=== PATIENT | female | born 1975 | race Caucasian/White ===

== ENCOUNTER 2016-12-01 19:38 | Emergency (ER) | payer MEDICARE, MEDICAID ==
[2016-12-01] MEDS ORDERED: Triple Antibiotic Oint 1 GM Packet ONE (21:34)
[2016-12-01] MEDS ORDERED: HYDROcodone/Acetaminophen 10/325 mg Tablet ONE (21:34)
[2016-12-01] MEDS ORDERED: Naproxen 500 MG TAB ONE (21:34)
[2016-12-01] MEDS ORDERED: Cephalexin 500 MG CAP ONE (21:34)
[2016-12-01] MEDS ORDERED: Adacel (T-DAP) 0.5 ML VIAL ONE (21:34)
== END 2016-12-01 21:52 | disposition home or self-care (01) ==
LOC: MADERS 19:38
DX: T23.262A Burn of second degree of back of left hand, initial encounter (principal); Z87.442 Personal history of urinary calculi; X19.XXXA Contact with other heat and hot substances, initial encounter
CPT/HCPCS: 90471; 90715

== ENCOUNTER 2017-07-16 21:16 | Emergency (ER) | payer MEDICARE, MEDICAID ==
--- NOTE | 2017-07-16 22:02 | RAD ---
TWO VIEWS RIGHT TIBIA AND FIBULA 07/16/17 HISTORY: Injury after trauma. FINDINGS: There is a slightly but nondisplaced transverse fracture involving the most distal aspect of the right lateral malleolus. There is overlying subcutaneous soft tissue swelling noted. No addit ional fracture is seen involving the right tibia or fibula. There is no dislocation seen. No other o sseous abnormality. IMPRESSION: Nondisplaced but slightly fracture involving the distal most aspect right lateral malleolu s with overlying soft tissue swelling. POS: LUIS
--- NOTE | 2017-07-16 22:04 | RAD ---
THREE VIEWS RIGHT ANKLE 07/16/17 HISTORY: Injury to right ankle with swelling. FINDINGS: There is a slightly fracture involving the most distal aspect of the lateral malleolus rig ht ankle. There is overlying subcutaneous soft tissue swelling seen. No additional fracture is seen, and there is no dislocation. Ankle mortise is congruent. IMPRESSION: Nondisplaced transverse fracture most distal aspect right lateral malleolus with overlying soft tiss ue swelling. POS: CONRADO
== END 2017-07-16 22:30 | disposition home or self-care (01) ==
LOC: MADERS 21:16
DX: S82.64XA Nondisplaced fracture of lateral malleolus of right fibula, initial encounter for closed fracture (principal); Z87.442 Personal history of urinary calculi; Z79.891 Long term (current) use of opiate analgesic; Z79.899 Other long term (current) drug therapy; X50.1XXA Overexertion from prolonged static or awkward postures, initial encounter
CPT/HCPCS: 29515

== ENCOUNTER 2019-05-13 11:45 | Emergency (ER) | payer MEDICARE, MEDICAID ==
--- NOTE | 2019-05-13 12:26 | RAD ---
Left RIBS 3 views Chest one view HISTORY: Fall. Left chest wall pain. FINDINGS: No displaced rib fracture or pneumothorax are apparent. Lower ribs are poorly evaluated due to extensive overlying soft tissues. Cardiac silhouette and pulmonary vasculature are unremarkable. No lobar consolidation. IMPRESSION: No significant abnormalities are demonstrated.
== END 2019-05-13 12:50 | disposition home or self-care (01) ==
LOC: MADERS 11:45
DX: R07.89 Other chest pain (principal); J45.909 Unspecified asthma, uncomplicated; Z79.899 Other long term (current) drug therapy; Z79.891 Long term (current) use of opiate analgesic; Z87.442 Personal history of urinary calculi; W54.1XXA Struck by dog, initial encounter

== ENCOUNTER 2025-05-18 01:16 | Emergency (ER) | payer MEDICAID, MEDICARE, OTHER ==
[2025-05-18] MEDS ORDERED: ALPRAZolam 0.5 MG TAB ONE (03:01)
[2025-05-18] MEDS ORDERED: Tetracaine 0.5% PF 4 ML BOT ONE (03:02)
[2025-05-18 03:38] LABS: Cocaine Metabolite Screen Negative (Negative); Glucose, Urine (Dipstick) Negative (Negative); Leukocyte Moderate (Negative); Protein, Urine (Dipstick) Negative (Neg-Trace); Specific Gravity, Urine 1.020 (1.005-1.030); THC/Cannabinoid Screen Negative (Negative); Tricyclic Screen Negative (Negative)
[2025-05-18 03:39] LABS: Bacteria/HPF 3+ HPF (None Seen); CAUTI Indications for Culture Alt mental st,lethar; RBC/HPF 0-3 HPF (0-3); WBC/HPF Greater than 50 HPF (0-3)
[2025-05-18 03:39] LABS: Anion Gap 15 mmol/L (10-20); BUN (Urea Nitrogen) 15 mg/dL (7.0-18.7); Calc. Creatinine Clearance 0 mL/min (70-130); Carbon Dioxide 21 mmol/L (22-29); Chloride 111 mmol/L (98-107); Glucose 97 mg/dL (70-105); Potassium 3.9 mmol/L (3.5-5.1); Sodium 143 mmol/L (136-145)
[2025-05-18 03:40] LABS: ALT (SGPT) 263 U/L (Less than 34); AST (SGOT) 120 U/L (11-34); Acetaminophen Less than 10 mcg/mL (Less than 10); Albumin 4.3 g/dL (3.1-4.5); Alkaline Phosphatase 169 U/L (40-110); Bilirubin, Total 0.3 mg/dL (0.3-1.2); Calcium 9.8 mg/dL (7.6-10.4); Globulin 3.3 g/dL (2.4-3.5); Salicylate Less than 8.0 mg/dL (Less than 8.0)
[2025-05-18 03:40] LABS: Urine Culture Reflex Yes Yes
[2025-05-18 03:41] LABS: Hematocrit 47.8 % (36.0-47.0); Hemoglobin 15.0 g/dL (12.0-16.0); Mean Corpuscular Hemoglobin 27.8 pg (27.0-31.0); Mean Corpuscular Volume 88.5 fl (78.0-98.0); Red Blood Cell (RBC) Count 5.40 mill/uL (4.20-5.40); White Blood Cell (WBC) Count 8.4 10x3/uL (4.8-10.8)
[2025-05-18 03:42] LABS: #Basophils 0.1 thou/uL (0.0-0.2); #Eosinophils 0.1 thou/uL (0.0-0.7); #Lymphocytes 3.5 thou/uL (1.20-3.40); #Monocytes 0.5 thou/uL (0.11-0.59); #Neutrophils 4.4 thou/uL (1.40-6.50); %Basophils 0.7 % (0.0-1.0); %Eosinophils 0.6 % (0.0-10.0); %Lymphocytes 41.3 % (21.0-51.0); %Monocytes 5.6 % (0.0-10.0); %Neutrophils 51.8 % (42.0-75.0); Platelet Count 298 10x3/uL (130-400)
== END 2025-05-18 07:07 ==
LOC: EEVIPCON 01:16 → MADERS 01:16
DX: R45.851 Suicidal ideations (principal); R45.1 Restlessness and agitation
CPT/HCPCS: 36415; 80053; 80306; 80307; 81001; 84443; 85025; 87077; 87086; 87186; 99285; Q0162